=== PATIENT | male | born 1945 | race Caucasian/White ===

== ENCOUNTER 2016-09-29 18:32 | Inpatient (IN) ==
--- NOTE | 2016-09-29 18:51 | EKG Report ---
Test Performed on : 09/29/2016 6:36:10 PM Test Reason : CP Blood Pressure : / mmHG Vent. Rate : 083 BPM Atrial Rate : 072 BPM P-R Int : 000 ms QRS Dur : 096 ms QT Int : 358 ms P-R-T Axes : 000 -46 065 degrees QTc Int : 420 ms Atrial fibrillation. Left axis deviation Anterior infarct (cited on or before 31-MAY-2014) Abnormal ECG When compared with ECG of 31-MAY-2014 17:57, Vent. rate has increased BY 29 BPM QRS axis shifted left Unconfirmed Result
[2016-09-29] MEDS ORDERED: LASIX IV ONE (18:54)
[2016-09-29] MEDS ORDERED: MORPHINE IM ONE (18:54)
[2016-09-29] MEDS ORDERED: ASPIRIN PO ONE (18:54)
[2016-09-29] MEDS ORDERED: NITROGLYCERIN LINGUAL SPRAY SL ONE (18:54)
--- NOTE | 2016-09-29 18:58 | PROVIDER DOCUMENTATION ---
HPI-Chest Pain - General Chief Complaint: Chest Pain Stated Complaint: BLOOD SUGAR,CHEST PAIN,SOB Time Seen by Provider: 09/29/16 18:43 Source: patient Allergies/Adverse Reactions: Patient Allergies Allergy/AdvReac Type Severity Reaction Status Date / Time No Known Allergies Allergy Verified 09/29/16 19:30 Home Medications: Home Medication List Medication Instructions Recorded Confirmed Last Taken Type Aspirin [Aspir 81] 81 mg PO DAILY 04/09/12 09/30/16 09/29/16 History Digoxin [Lanoxin] 0.25 mg PO HS 04/09/12 09/30/16 09/29/16 History Fenofibrate 160 mg PO DAILY 04/09/12 09/30/16 09/29/16 History Furosemide [Lasix] 40 mg PO DAILY 04/09/12 09/30/16 09/29/16 History Glimepiride 2 mg PO DAILY 04/09/12 09/30/16 09/29/16 History Metformin [Glucophage] 500 mg PO BID 04/09/12 09/30/16 09/29/16 History Potassium Chloride [Klor-Con M20] 20 meq PO DAILY 04/09/12 09/30/16 09/29/16 History Quinapril [Accupril] 20 mg PO DAILY 04/09/12 09/30/16 09/29/16 History Albuterol Sulfate [Ventolin] 1 dose IH PRN PRN 03/28/15 09/30/16 09/29/16 History Gabapentin 1 tab PO TID 03/28/15 09/30/16 09/29/16 History Insulin Lispro [Humalog] 35 units SQ TID 03/28/15 09/30/16 09/29/16 History Insulin Glargine [Lantus] 50 units SUBQ DAILY 09/30/16 09/30/16 09/29/16 History Ipratropium Hope Neb [Atrovent 0.5 mg INH BID 09/30/16 09/30/16 09/29/16 History Neb] - History of Present Illness-CP Nature of Presenting Problem: pt is a 71 y/o M c chief complaint of chest pain and sob this afternoon. Pt states that he has had progressively worsening pedal edema and shortness of breath x 1 week. Pt has also been hyperglycemic c blood glucose ranging from 300 -400. Pt has a h/o OK, CHF, COPD, DM II, A-FIB. He states his last OK was 2 years ago and his last hospitalization for CHF exacerbation was 1 year ago. 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 On arrival, pt is in moderate distress. Review of Systems - Adult - REVIEW OF SYSTEMS - ADULT Constitutional: reports: see chito BRANDT. denies: chills Eyes: reports: no symptoms reported. denies: blurred vision, double vision Ears, Nose, Mouth & Throat: reports: no symptoms reported. denies: ear pain, loose teeth, throat pain Cardiovascular: reports: chest pain, edema, orthopnea Respiratory: reports: cough, dyspnea on exertion, shortness of breath. denies: chronic cough, wheezing Gastrointestinal: reports: no symptoms reported. denies: abdominal pain, nausea , vomiting Genitourinary: reports: no symptoms reported. denies: discharge, hematuria Musculoskeletal: reports: no symptoms reported. denies: bone pain, joint pain, joint swelling Integumentary: reports: no symptoms reported. denies: itching, rash Neurological: reports: no symptoms reported. denies: numbness, paresthesia Psychiatric: reports: no symptoms reported. denies: anxiety, emotional problems Endocrine: reports: no symptoms reported. denies: cold intolerance, heat intolerance Hematologic/Lymphatic: reports: no symptoms reported. denies: blood clots, low blood count Allergic/Immunologic: reports: no symptoms reported. denies: allergic reactions , food allergy All Other Systems: Reviewed and Negative Past History - Adult - PAST MEDICAL HISTORY-ADULT Review of Records: reports: Old Records Reviewed, Nursing Assessment Review, Medications Reviewed, Social history reviewed & non-contributory. Major Childhood Illnesses: reports: denies history Cardiovascular: reports: A-Fib, CHF, HTN, OK Respiratory: reports: asthma, COPD Gastrointestinal: reports: denies history Obstetrical/Gynecological: reports: denies history Genitourinary: reports: denies history Musculoskeletal: reports: denies history Neurological: reports: denies history Endocrine/Immune: reports: Diabetes Diabetes Type: Type 2 Other Conditions: reports: denies history - IMMUNIZATION STATUS Childhood Immunizations: See Nurse Assessment Flu Vaccine: See Nurse Assessment - FAMILY HISTORY Family History: reviewed, not pertinent - SOCIAL HISTORY Smoking: cigarettes Substance Use: none/never Alcohol Use Frequency: never Living Situation: family Physical Exam-General - PHYSICAL EXAM-ADULT Initial Vital Signs Reviewed: Yes - CONSTITUTIONAL General Appearance: appears well, alert, no apparent distress - EYES Eyes: PERRL/EOMI, pink conjunctivae - HEAD, EARS, NOSE, MOUTH & THROAT HENMT: normocephalic/atraumatic, moist mucous membranes, normal ENT inspection - NECK Neck: normal inspection - RESPIRATORY Respiratory: chest non-tender, lungs clear, normal breath sounds - CARDIOVASCULAR Cardiovascular: normal peripheral pulses, regular rate, rhythm - GASTROINTESTINAL (ABDOMEN) Abdominal Exam: normal bowel sounds, non tender, soft - LYMPHATIC Lymphatic: no adenopathy - MUSCULOSKELETAL Back Exam: normal inspection, no CVA tenderness, no vertebral tenderness Extremity: normal range of motion, non-tender, normal inspection - SKIN Integumentary: normal color, normal turgor, warm/dry - NEUROLOGIC Neurologic: grossly normal, no motor/sensory deficits - PSYCHIATRIC Psych/Mental Status: normal mood/affect, normal thought content, normal thought process, oriented x 3 Progress - PLAN OF CARE/RESULTS Progress/Plan/Lab Results: Orders Category Date Time Status Admit - [facility] Routine AdmDCTranf 09/29/16 21:36 Ordered Activity - Strict Bedrest ORDERED Care 09/29/16 21:36 Active Call Admitting on Arrival AT ADMISSION Care 09/29/16 21:36 Active Cardiac Monitoring DIRECTED Care 09/29/16 18:37 Active Cardiac Monitoring DIRECTED Care 09/29/16 18:44 Active Lantigua Cath Insertion ORDERED Care 09/29/16 19:12 Active Saline Loc DIRECTED Care 09/29/16 21:36 Active Saline Loc NOW Care 09/29/16 18:37 Active Saline Loc NOW Care 09/29/16 18:44 Active Vital Signs Order ARRIVAL TO ROOM Care 09/29/16 21:36 Active Heart Healthy Diet Diet 09/29/16 21:37 Completed CHEST-2 VIEWS [RAD] Stat Exams 09/29/16 18:[address] THORAX W/O CONTRAST [CT] Stat Exams 09/29/16 19:36 Completed ACETONE SERUM [CHEM] Stat Lab 09/29/16 18:40 Completed CBC WITH ELECTRONIC DIFF [HEME] Stat Lab 09/29/16 19:00 Completed CK PROFILE [SP CHEM] Stat Lab 09/29/16 19:00 Completed COMPREHENSIVE METABOLIC PANEL [CHEM] Stat Lab 09/29/16 19:[address] Com[address] D-DIMER PL [COAG] Stat Lab 09/29/16 19:00 Completed MAGNESIUM [CHEM] Stat Lab 09/29/16 19:00 Completed PRO B-NATRIURETIC PEPTIDE Stat Lab 09/29/16 19:00 Completed [address]IME WITH INR PL [COAG] Stat Lab 09/29/16 19:[address] [COAG] Stat Lab 09/29/16 19:00 Completed TROPONIN T Stat Lab 09/29/16 19:[address] W/POSS RFLX CULT [URINALYSIS] Stat Lab 09/29/16 19:49 Completed Acetaminophen [Tylenol] Med 09/29/16 21:36 Discontinued 650 mg PO Q6H PRN PRN Aspirin Med 09/29/16 18:54 Discontinued 325 mg PO NOW ONE Furosemide [Lasix] Med 09/29/16 18:54 Discontinued 40 mg IV NOW ONE Morphine Med 09/29/16 21:36 Discontinued 2 mg IV Q2H PRN PRN Morphine Med 09/29/16 18:54 Discontinued 4 mg IM NOW ONE Nitroglycerin Med 09/29/16 19:12 Discontinued 1 inch TOP NOW ONE Nitroglycerin [Nitroglycerin Lingual [place]] Med 09/29/16 18:54 Discontinued 0.4 gm [address] PRN ONE Ondansetron [Zofran] Med 09/29/16 21:36 Discontinued 4 mg IV Q4H PRN PRN Oxygen Device Routine Oth 09/29/16 21:36 Active Telemetry [OM.EQ] Routine Oth 09/29/16 21:36 Active EKG [EKG] Stat Ther 09/29/16 18:37 Draft Transfer/Admit Order [TRANSFER] Routine Transfer 09/29/16 21:37 Completed Result Diagrams: 09/29/16 19:00 09/29/16 19:00 - REASSESSMENT Reassessment #1 Time Reassessed: 18:53 (Dr. Cade (ER MD) at bedside examining pt. ) Departure - Departure Time of Disposition Decision: 23:20 DIAGNOSIS: Congestive heart failure Qualifiers: Congestive heart failure type: unspecified congestive heart failure type Disposition: ADMITTED INPATIENT 09 Certified Medical Emergency: Emergent Condition: Stable Attestation - Physician/ CORDELIA Attestation Patient care was provided by Advanced Practice Provider:: Yes Advanced Practice Provider:: Damien Blackburn Advanced Practice Provider documentation review:: The Mid-level provider documentation, treatment plan and medical decision making was reviewed by the physician who agrees with all treatment and medical decision making by the MLP. The physician spent face to face time with patient:: Yes Advanced Practice Provider documentation review:: The physician spent face to face time with this patient and agrees with all MLP documentation, treatment, and medical decision making by the MLP. See provider notes for further information.
[2016-09-29 19:01] LABS: MANUAL DIFF NEEDED? NO
[2016-09-29 19:03] LABS: BASO% 0.9 % (0.0-0.8); EOS# 0.55 X1000 (0.0-0.7); EOS% 4.7 % (0.0-10.0); HEMATOCRIT 43.9 % (42.0-52.0); HEMOGLOBIN 13.9 g/dL (14.0-18.0); IMM GRAN% 0.9 % (0.0-0.5); LYMPH# 2.25 X1000 (1.2-3.4); LYMPH% 19.2 % (20.5-51.1); MCH 29.6 PG (27-31); MCHC 31.7 g/dL (33-37); MCV 93.6 FL (81-99); MONO# 0.69 X1000 (0.11-0.59); MONO% 5.9 % (1.7-9.3); MPV 11.7 FL (7.4-10.4); NEUT% 68.4 % (42.2-75.2); PLT 256 X1000 (130-400); RBC 4.69 XMIL (4.7-6.1)
[2016-09-29] MEDS ORDERED: NITROGLYCERIN TOP ONE (19:12)
[2016-09-29 19:25] LABS: CALCIUM 9.8 mg/dL (8.8-10.2); MAGNESIUM 1.8 mg/dL (1.5-2.7); POTASSIUM 4.6 mmol/L (3.5-5.1); TOTAL BILIRUBIN 0.4 mg/dL (0.20-1.00); TOTAL PROTEIN 7.2 g/dL (6.3-8.3)
[2016-09-29 19:27] LABS: INR 1.03 (0.86-1.15); PROTIME 13.8 Seconds (12.1-15.5)
[2016-09-29 19:28] LABS: PTT PL 38.8 Seconds (22.6-43.9)
[2016-09-29 20:28] LABS: URINE CULTURE PL NEEDED? NO
[2016-09-29 20:37] LABS: BILIRUBIN URINE NEGATIVE (NEGATIVE); BLOOD URINE TRACE (NEGATIVE); CLARITY CLEAR (CLEAR); COLOR YELLOW; LEUKOCYTES URINE NEGATIVE (NEGATIVE); NITRITE URINE NEGATIVE (NEGATIVE); SP GRAVITY URINE 1.015; UROBILINOGEN URINE NORMAL
[2016-09-29 21:08] LABS: URINE RBC <10 /HPF (<10); URINE SOURCE CLEAN CATCH
[2016-09-29] MEDS ORDERED: TYLENOL PO PRN (21:36)
[2016-09-29] MEDS ORDERED: MORPHINE IV PRN (21:36)
[2016-09-29] MEDS ORDERED: ZOFRAN IV PRN (21:36)
--- NOTE | 2016-09-29 21:40 | Diag Imaging Result Document ---
PROCEDURE NAME: CT THORAX W/O CONTRAST - 09/29/2016 CT OF THE CHEST: A CT dose reduction protocol was used. COMPARISON: Chest x-ray from earlier. FINDINGS: There is no adenopathy. Heart and great vessels are grossly normal. The lungs are clear. Upper abdominal images are normal. Bony structures are intact. IMPRESSION: Negative exam. MTDD
--- NOTE | 2016-09-29 21:50 | Diag Imaging Result Document ---
PROCEDURE NAME: CHEST-2 VIEWS - 09/29/2016 CHEST X-RAY, 2 VIEWS: COMPARISON: 03/28/2015 FINDINGS: The lungs are normally expanded and clear. Heart size and mediastinal contours are normal. No pneumothorax or pleural effusion. IMPRESSION: Negative exam.
[2016-09-29 22:58] VITALS: BP 152/80
--- NOTE | 2016-10-07 14:34 | HISTORY AND PHYSICAL ---
The patient apparently was admitted through the ER on 09/29/2016; however, he left AMA before I could physically see him. cc: Wing Begum MD
--- NOTE | 2016-10-07 14:50 | DISCHARGE SUMMARY ---
ADMISSION DATE: 09/29/2016 DISCHARGE DATE: 09/29/2016 The patient was not seen by myself. He was admitted late in the evening on 09/29/2016 and left AMA apparently at around 0045 on 09/30/2016. cc: Wing Begum MD
== END 2016-09-29 23:20 | disposition left against medical advice (07) ==
LOC: P.ED 18:32 → P.MEDSURG 21:58
PROVIDERS: ATTEND Family Medicine